=== PATIENT | male | born 1970 | race Caucasian/White ===

== ENCOUNTER 2016-07-17 09:13 | Emergency (ER) | payer MEDICARE ==
[2016-07-17 09:22] VITALS: BP 140/89
== END 2016-07-17 11:53 | disposition left against medical advice (07) ==
LOC: ED 09:13
DX: R05 Cough (principal); M79.1 Myalgia; R51 Headache; Z53.21 Procedure and treatment not carried out due to patient leaving prior to being seen by health care provider